=== PATIENT | male | born 1985 | race Hispanic/Latino ===

== ENCOUNTER 2020-01-04 12:16 | Day surgery (SDC) | payer SELFPAY ==
[2020-01-04] MEDS ORDERED: Boostrix 0.5 ML (Tdap) VIAL ONE (12:36)
[2020-01-04] MEDS ORDERED: Fentanyl 100 MCG/2 ML VIAL ONE ×2 (12:36→16:45)
--- NOTE | 2020-01-04 13:05 | RAD ---
3 views of the right middle finger: 01/04/2020 COMPARISON: None HISTORY: Crush injury to the third finger FINDINGS: There is soft tissue swelling involving the middle finger with soft tissue irregularity dis tally suggesting laceration. No associated fracture or dislocation. No radiopaque foreign body. IMPRESSION: Soft tissue swelling of the third digit with distal laceration. No associated fracture or dislocation.
[2020-01-04 13:15] LABS: #Basophils 0.1 thou/uL (0.0-0.2); #Eosinphils 0.3 thou/uL (0.0-0.7); #Lymphocytes 2.2 thou/uL (1.20-3.40); #Monocytes 0.8 thou/uL (0.11-0.59); #Neutrophils 3.3 thou/uL (1.40-6.50); %Basophils 1.5 % (0.0-1.0); %Eosinophils 3.8 % (0.0-10.0); %Lymphocytes 33.5 % (21.0-51.0); %Monocytes 12.4 % (0.0-10.0); %Neutrophils 48.9 % (42.0-75.0); Hemoglobin 15.7 g/dL (14.0-18.0); Mean Corpuscular HGB CONC 34.5 g/dL (32.0-36.0); Mean Corpuscular Hemoglobin 30.5 pg (27.0-31.0); Mean Corpuscular Volume 88.3 fL (78.0-98.0); Platelet Count 216 thou/uL (130-400); RBC Distribution Width 11.5 % (11.5-14.5); Red Blood Cell (RBC) Count 5.15 mill/uL (4.70-6.10); White Blood Cell (WBC) Count 6.7 thou/uL (4.8-10.8)
[2020-01-04 13:32] LABS: ALT (SGPT) 48 U/L (8-55); AST (SGOT) 32 U/L (5-34); Albumin 4.6 g/dL (3.5-5.0); Alkaline Phosphatase 68 U/L (40-110); Anion Gap 14 mmol/L (10-20); BUN (Urea Nitrogen) 11 mg/dL (8.9-20.6); Bilirubin, Total 0.6 mg/dL (0.2-1.2); Calc. Creatinine Clearance 0 mL/min (70-130); Calcium 9.6 mg/dL (7.8-10.44); Carbon Dioxide 24 mmol/L (22-29); Chloride 103 mmol/L (98-107); Globulin 3.1 g/dL (2.4-3.5); Glucose 129 mg/dL (70-105); Protein, Total 7.7 g/dL (6.0-8.3); Sodium 137 mmol/L (136-145)
[2020-01-04] MEDS ORDERED: Ondansetron PF 4 MG/2 ML Vial ONE (14:17)
[2020-01-04] MEDS ORDERED: Dexamethasone 20 MG/5 ML VIAL ONE (14:17)
[2020-01-04] MEDS ORDERED: ePHEDrine 50 MG/ML VIAL ONE (14:17)
[2020-01-04] MEDS ORDERED: Lidocaine 1% PF 5 ML VIAL ONE (14:17)
[2020-01-04] MEDS ORDERED: PHENYLEPHRINE-NS 100 MCG/ML 10 ML SYRINGE ONE (14:17)
[2020-01-04] MEDS ORDERED: PROPOFOL 200 MG/20 ML VIAL ONE (14:17)
[2020-01-04] MEDS ORDERED: Ketorolac Tromethamine 30 MG/ML VIAL ONE (14:17)
[2020-01-04] MEDS ORDERED: Mineral Oil Sterile 10ML 10 ML UDCUP ONE (16:38)
[2020-01-04] MEDS ORDERED: Bupivacaine PF 0.5% 30 ML VIAL ONE (16:38)
[2020-01-04] MEDS ORDERED: Sodium Chloride 0.9% 10 ML ONE (16:38)
[2020-01-04] MEDS ORDERED: Thrombin 5000 UNITS/5 ML VIAL ONE (16:38)
[2020-01-04] MEDS ORDERED: Bacitracin Zinc Ointment 30 gm TUBE ONE (16:38)
[2020-01-04 16:49] LABS: SARS-CoV-2 NAA Rapid Test Not Detected (NotDetected)
[2020-01-04] MEDS ORDERED: HYDROcodone/Acetaminophen 5/325 mg Tablet ONE (19:45)
[2020-01-04 20:17] LABS: SARS-CoV-2 IgG Ab Non-Reactive (NonReactive); SARS-CoV-2 IgG Index 0.02 S/CO (< 1.40)
--- NOTE | 2020-01-04 23:43 | OP ---
DATE OF PROCEDURE: 01/04/2020 PREOPERATIVE DIAGNOSIS: Right middle finger 2.5 x 1.0 cm wound, full-thickness skin loss for contamination circumferentially around the wound and incision. FINDINGS: Tar-base substance staining the skin all around the wound described above for a total of 3 cm wound with the distal 1 cm once the tar was removed could be closed. PROCEDURES PERFORMED: 1. Debridement of wound down to, but not including the fascia. 2. Right middle finger full-thickness skin graft, 2.5 x 1.0 cm. COMPLICATIONS: None. TOURNIQUET TIME: 19 minutes. BLOOD LOSS: 10 cc. FINDINGS: 1. The wound with metal contamination except for the christian-incisional tar. 2. The patient had light touch intact distal to the incision, so we did not do a formal neuroplasty. DESCRIPTION OF PROCEDURE: After successful general endotracheal anesthesia, the limb was prepped and draped including the antecubital fossa. We then saw the size of the wound, injected the finger with 10 cc of 0.5% Marcaine with epinephrine. Then placed a total of 5 more cc in the finger and then 10 proximal to the graft harvest site. After that, the limb was exsanguinated, tourniquet inflated to 250 mmHg pressure. Medially, we began to debride the edges of the wound, where we thought was necrotic skin, but it was really stained by a tar-like substance. Once removed the tar-like substance, there was no burn and the skin underneath was intact. Also, the residual tar staining that was fairly thick at the beginning of the surgery at the proximal end of the wound. Once it was removed, we saw that this was not a wound, but just dermis with the epidermis scar. Thus, once before debridement using the curette, tenotomy scissors, Adson's, 2 L normal saline with antibiotics inside with bulb syringe pressure, Supply, and a knife blade 11 blade size, we finished enough excisional debridement to make the wound environment clean enough for definitive coverage. We did not see further contamination. Once we did this, we closed the distal 1 cm wound with 5-0 nylon, and then we saw it would be too much of a strain on the skin edges to try to close the rest, so we then released the tourniquet, obtained hemostasis, and then made the elliptical incision that was 2.5 cm x 1 cm long enough and wide enough at his apex to cover the widest part of this wound. Once we had done this, we defatted the skin graft, placed normal saline soaked gauze on the harvest site, and then placed it with four bolster sutures, two on each side, radial and ulnar of the open defect. We then did a circumferential 6-0 chromic to hold the graft in place at this finger tip injury. It was excellent apposition. Tourniquet was down. Hemostasis was excellent during this phase. We then placed bacitracin, Adaptic over the exact graft site and the rest of the wound distal to the graft, placed mineral oil-soaked gauze on this and then tied the two bolster sutures from radial to ulna to hold the bolster and graft in place. We then turned our attention to the graft site that we replaced with running 4-0 Monocryl in the dermis-epidermal junction and then placed individual 4-0 nylon in the epidermis. The patient had a pink finger, hemostasis excellent, we covered the digit with a sterile finger tube gauze over 4 x 4's. We placed a Kerlix around this to the level of the mid to distal third forearm. We then placed bacitracin, Adaptic, 4 x 4's, and the remainder of the Kerlix over the antecubital harvest site. While we were in the antecubital harvest, we placed 4 inch Stefan wrap and then from the distal third forearm distally to the finger tip we placed 2 inch Coban. He had excellent circulation and no undue tension was applied. The patient left the operating room without evidence of anesthetic or operative complication. Job ID: [id number]
== END 2020-01-04 20:05 | disposition home or self-care (01) ==
LOC: ERS 12:16 → SDC 16:43
PROVIDERS: ATTEND Orthopaedic Surgery Hand Surgery
PROC: 0HRFX73 Replacement of Right Hand Skin with Autologous Tissue Substitute, Full Thickness, External Approach (ICD-10-PCS; principal; 2020-01-04)
DX: S61.212A Laceration without foreign body of right middle finger without damage to nail, initial encounter (principal); F17.210 Nicotine dependence, cigarettes, uncomplicated; Z20.828 Contact with and (suspected) exposure to other viral communicable diseases; W27.8XXA Contact with other nonpowered hand tool, initial encounter; Y92.59 Other trade areas as the place of occurrence of the external cause; Y99.0 Civilian activity done for income or pay
CPT/HCPCS: 36415; 80053; 85025; 86769; 90471; 90715; 96365; 96366; 96375; J0690; J1100; J1885; J2405; J2704; J3010; J3490; S0020; U0002

== ENCOUNTER 2023-01-02 23:57 | Emergency (ER) | payer SELFPAY ==
[2023-01-03 02:22] LABS: Troponin I Less than 0.010 ng/mL (< 0.028)
[2023-01-03] MEDS ORDERED: Lorazepam 1 MG TAB ONE (02:34)
[2023-01-03 03:30] LABS: #Basophils 0.1 thou/uL (0.0-0.2); #Eosinphils 0.1 thou/uL (0.0-0.7); #Monocytes 0.4 thou/uL (0.11-0.59); #Neutrophils 5.8 thou/uL (1.40-6.50); %Basophils 0.6 % (0.0-1.0); %Monocytes 5.1 % (0.0-10.0); Hematocrit 42.8 % (42.0-52.0); Hemoglobin 15.3 g/dL (14.0-18.0); Mean Corpuscular HGB CONC 35.7 g/dL (32.0-36.0); Mean Corpuscular Volume 83.9 fl (78.0-98.0); Platelet Count 230 10x3/uL (130-400); RBC Distribution Width 11.6 % (11.5-14.5); White Blood Cell (WBC) Count 7.8 10x3/uL (4.8-10.8)
[2023-01-03 03:45] LABS: ALT (SGPT) 26 U/L (8-55); AST (SGOT) 20 U/L (5-34); Alkaline Phosphatase 92 U/L (40-110); Anion Gap 19 mmol/L (10-20); BUN (Urea Nitrogen) 10 mg/dL (8.9-20.6); Bilirubin, Total 0.9 mg/dL (0.2-1.2); Calc. Creatinine Clearance 0 mL/min (70-130); Calcium 9.3 mg/dL (7.8-10.44); Carbon Dioxide 17 mmol/L (22-29); Chloride 102 mmol/L (98-107); Estimated GFR 104; Globulin 2.9 g/dL (2.4-3.5); Glucose 308 mg/dL (70-105); Protein, Total 7.9 g/dL (6.0-8.3); Sodium 134 mmol/L (136-145)
== END 2023-01-03 04:00 | disposition home or self-care (01) ==
LOC: ERS 23:57
DX: R07.89 Other chest pain (principal); F17.210 Nicotine dependence, cigarettes, uncomplicated
CPT/HCPCS: 36415; 71045; 80053; 84484; 85025; 93005